=== PATIENT | male | born 1975 ===

== ENCOUNTER 2019-03-07 17:53 | Emergency (ER) | payer MEDICARE ==
[~2019-03-07] VITALS: Ht 190.5 cm; Wt 111.4 kg
[2019-03-07 17:56] VITALS: BP 132/89; Ht 190.5 cm; Wt 111.4 kg
[2019-03-07 18:51] LABS: APPEARANCE HAZY (CLEAR); BACTERIA MANY /hpf (NONE SEEN); BILIRUBIN NEGATIVE (NEGATIVE); COLOR BROWN (YELLOW); GLUCOSE NEGATIVE (NEGATIVE); KETONE NEGATIVE (NEGATIVE); NITRITE NEGATIVE (NEGATIVE); PROTEIN 1+ mg/dL (NEGATIVE); RED CELLS - URINE 25-50 /hpf (0-5); SPECIFIC GRAVITY 1.015 (1.005-1.020); UROBILINOGEN NORMAL (NORMAL); WHITE CELLS - URINE >50 /hpf (0-5)
[2019-03-07 19:02] LABS: BASOPHILS 0.2 % (0-2); EOSINOPHILS 1.1 % (0-7); HEMATOCRIT 42.4 % (42.0-54.0); HEMOGLOBIN 14.7 g/dL (13.5-17.5); IMMATURE GRANULOCYTES 0.1 % (0-5); LYMPHOCYTES 27.6 % (15-50); MCH 33.9 pg (26.0-34.0); MCHC 34.7 g/dL (31.0-37.0); MCV 97.9 fL (80.0-100.0); MEAN PLATELET VOLUME 11.3 fL (7.4-10.4); MONOCYTES 8.1 % (2-11); NEUTROPHILS 62.9 % (40-80); PLATELET COUNT 136 10x3/uL (130-400); RBC 4.33 10x6/uL (4.20-6.10); RDW 12.2 % (11.5-14.5); WBC 8.8 10x3/uL (4.8-10.8)
[2019-03-07 19:17] LABS: ALBUMIN 3.8 g/dL (3.4-5.0); ALKALINE PHOSPHATASE 51 U/L (46-116); ALT (SGPT) 21 U/L (10-68); BILIRUBIN - TOTAL 0.68 mg/dL (0.2-1.3); CALC OSMOLALITY 276 mosm/kg (275-300); CALCIUM 9.1 mg/dL (8.5-10.1); CARBON DIOXIDE 32.5 mmol/L (21.0-32.0); CHLORIDE - SERUM 102 mmol/L (98-107); GLUCOSE 100 mg/dL (74-106); POTASSIUM - SERUM 3.8 mmol/L (3.5-5.1); PROTEIN - SERUM 7.6 g/dL (6.4-8.2); SODIUM 139 mmol/L (136-145); UREA NITROGEN 9 mg/dL (7-18); eGFR NON AFRICAN AMERICAN 86 mL/min (90-120)
== END 2019-03-07 21:55 | disposition home or self-care (01) ==
LOC: D.ER 17:53
PROVIDERS: Family Medicine
DX: N41.9 Inflammatory disease of prostate, unspecified (principal); R68.89 Other general symptoms and signs